=== PATIENT | female | born 1965 | race Caucasian/White ===

== ENCOUNTER → 2016-06-12 | Outpatient (CLI) | payer BC ==
[~2016-06-12] MED LIST: ALBU1AER9 INH; ASTIN/15 NAE; FLUO20CA35 PO; FLUT50SP22 NAE; LORA-741 PO; MONT1TAB3 PO; MULT-506 PO; NXM/40 PO; QVRINH80 NAE; VALA500T60 PO
--- NOTE | 2016-06-12 13:24 | MAMMOGRAPHY REPORT ---
BILATERAL DIGITAL SCREENING MAMMOGRAM TOMOSYNTHESIS WITH CAD: 06/12/2016 TECHNIQUE: Breast tomosynthesis in addition to standard 2D mammography was performed. Current study was also evaluated with a Computer Aided Detection (CAD) system. COMPARISON: Comparison is made to exams dated: 06/08/2015 mammogram, 06/07/2014 mammogram, 06/04/2013 ma mmogram, 05/23/2011 mammogram, 06/02/2012 mammogram, and 05/22/2010 mammogram - [facility] nt. BREAST COMPOSITION: There are scattered areas of fibroglandular density in both breasts. FINDINGS: No suspicious masses, calcifications, or areas of architectural distortion are noted in e ither breast. There has been no significant interval change compared to prior exams. IMPRESSION: ACR BI-RADS CATEGORY 1: NEGATIVE There is no mammographic evidence of malignancy. A 1 year screening mammogram is recommended. The p atient will receive written notification of the results. Approximately 10% of breast cancers are not detected with mammography. A negative mammographic repor t should not delay biopsy if a clinically suggestive mass is present. Silvia Lozano M.D. ah/:06/12/2016 09:55:09 [employer] Glazer: Selma MIXON)(Kylee), [facility] letter sent: Normal 1/2 BI-RADS Code: ACR BI-RADS Category 1: Negative
== END | disposition home or self-care (01) ==
LOC: C.MAMM 09:12
PROVIDERS: ATTEND Obstetrics & Gynecology
DX: Z12.31 Encounter for screening mammogram for malignant neoplasm of breast (principal)

== ENCOUNTER → 2016-06-15 | Outpatient (CLI) | payer BC | END | disposition home or self-care (01) | LOC: C.PAPS 16:36 | PROVIDERS: ATTEND Obstetrics & Gynecology | DX: Z01.411 Encounter for gynecological examination (general) (routine) with abnormal findings (principal); R87.619 Unspecified abnormal cytological findings in specimens from cervix uteri ==

== ENCOUNTER → 2017-03-26 | Outpatient (CLI) | payer BC ==
[2017-03-26 17:37] LABS: MEAN CELL VOLUME 84.1 fL (80-100); MEAN CORPUSCULAR HEMOGLOBIN 27.2 pg (25-34); MEAN CORPUSCULAR HGB CONC 32.4 g/dl (32-36); PLATELET COUNT 400 K/uL (130-400); RED BLOOD COUNT 4.52 M/uL (4.2-5.4); WHITE BLOOD COUNT 12.21 K/uL (4.8-10.8)
== END | disposition home or self-care (01) ==
LOC: C.LAB1850 16:38
PROVIDERS: ATTEND Obstetrics & Gynecology
DX: N93.9 Abnormal uterine and vaginal bleeding, unspecified (principal)

== ENCOUNTER → 2017-05-15 | Day surgery (SDC) | payer BC, OTHER ==
[2017-04-04 13:37] VITALS: Ht 152.4 cm; Wt 77.3 kg
[~2017-05-15] VITALS: Ht 152.4 cm; Wt 77.3 kg
[~2017-05-15] MED LIST changes: -ALBU1AER9 INH; +ATROPINE SULFATE 0.1 MG/ML 5ML SYR IV PRN; +DEXAMETHASONE SOD INJ 4 MG/ML VIAL ONE; +EpHEDrine SULFATE INJ 50 MG/ML AMP IV PRN; +FENTANYL CITRATE INJ 50 MCG/1 ML 2 ML VIAL IV PRN; +FENTANYL CITRATE INJ 50 MCG/1 ML 2 ML VIAL ONE; +HYDROmorphone INJ 1 MG/ML SYR IV PRN; +IBUPROFEN 600 MG TAB PO PRN; +KETOROLAC TROMETHAMINE 30 MG/ML VIAL IV. PRN; +KETOROLAC TROMETHAMINE 30 MG/ML VIAL ONE; +LACTATED RINGER'S 1000ML 1,000 ML IV SCH; +LIDOCAINE HCL 2% 2 ML VIAL (20MG/ML) ONE; +MIDAZOLAM HCL 1 MG/ML 2ML VIAL ONE; +ONDANSETRON INJ 2 MG/ML 2 ML VIAL IV PRN; +ONDANSETRON INJ 2 MG/ML 2 ML VIAL ONE; +OXYCODONE/ACETAMINOPHEN 5-325 TAB PO PRN; +PROPOFOL IV EMULSION 10 MG/ML 20 ML VIAL IV ONE; +SILVER NITR/POTASSIUM NITRATE APPLICATOR ONE; +SODIUM CHLORIDE 0.9% 1000ML 1,000 ML IV SCH; +VNTHFA/IN INH
--- NOTE | 2017-05-15 12:02 | History & Physical Bridge - SC ---
H&P Re-Evaluation Bridge Note: I have examined the patient, reviewed the History & Physical and in the interval since the performance of the History & Physical I have noted the following changes of clinical significance: No changes noted
--- NOTE | 2017-05-15 12:43 | [facility] Post Operative Brief Note ---
Immediate Operative Summary Operative Date May 15, 2017. Pre-Operative Diagnosis Abnormal Uterine Bleeding; Menorrhagia with Regular Cycle Post-Operative Diagnosis Same Procedure(s) Performed 1. D&C 2. Hysteroscopy 3. endometrial ablation with novasure. Surgeon Dr. Fifi Acevedo Cement Truck Loader Surgeon(s) None Estimated Blood Loss 0 Findings normal cavity with fluffy lining, consistent with current menses. right tubal ostia seen, left not well seen. uterus sounds to 8cm, cervix length is 3.5cm for cavity length of 4.5cm. Cavity width 3.5cm. Ablation in 1min 39 seconds. normal cavity consistent with ablation postprocedure with no evidence of perforation. Fluids (cc crystalloids) 750 Specimens A. Endometrial Curettings Drains none Anesthesia general Complication(s) None Disposition Recovery Room / PACU
--- NOTE | 2017-05-15 12:45 | Discharge Instructions ---
Discharge Instructions Date of Service May 15, 2017. Admission Reason for Admission: Excessive And Frequent Menstration With Irregular Discharge Discharge Diagnosis / Problem: after surgery Discharge Goals Goal(s): Routine recovery after surgery Activity Recommendations Activity Limitations: as noted below . Instructions / Follow-Up Instructions / Follow-Up ACTIVITY RECOMMENDATIONS: * Avoid tampons, douching, hot tubs, pools, and intercourse until bleeding has stopped. * May shower as usual. * No strenuous activity for 24-48 hours. After 24-48 hours, you may do anything you feel like doing (driving and sports are okay). SPECIAL CARE INSTRUCTIONS: Special Diet: * Mild nausea may occur in the immediate post-operative period. * Take clear liquids such as tea, cola or bouillon until all nausea has subsided; you may then resume your normal diet. Special Care: * Light bleeding and vaginal spotting can last from a few days to 3-4 weeks. Call your doctor if bleeding becomes heavier than the heaviest part of your period. * Check your temperature twice a day for one week. If it goes above 100.4 degrees Fahrenheit (38.0 Celsius), notify your doctor. * Call your doctor's office for an appointment for 2-4 weeks after your surgery. FOLLOW-UP VISIT: Call your doctor's office for an appointment for 2-4 weeks after your surgery. Current Hospital Diet Patient's current hospital diet: Discharge Diet Recommended Diet: Regular Diet Procedures Procedures Performed: 1. D&C 2. Hysteroscopy 3. endometrial ablation with novasure. Pending Studies Studies pending at discharge: yes List of pending studies: pathology Medical Emergencies . Who to Call and When: Medical Emergencies: If at any time you feel your situation is an emergency, please call 911 immediately. . Non-Emergent Contact Non-Emergency issues call your: Manager Data Warehousing . . "Provider Documentation" section prepared by Jasmyne Acevedo. . VTE Core Measure Inpt VTE Proph given/why not?: Treatment not indicated
--- NOTE | 2017-05-15 13:05 | [facility] Operative Report ---
Operative Report Operative Date May 15, 2017. Pre-Operative Diagnosis Abnormal Uterine Bleeding; Menorrhagia with Regular Cycle Post-Operative Diagnosis Same Procedure(s) Performed 1. D&C 2. Hysteroscopy 3. endometrial ablation with novasure. Surgeon Dr. Fifi Acevedo Battery Container Inspector Surgeon(s) None Estimated Blood Loss 0 Findings Hysteroscopic findings included normal uterine cavity with no evidence of lesions. Right tubal ostia seen, left tubal ostia obscured. Lining was fluffy in appearance consistent with her current menses. Moderate curettings. The patient took place in 1 minute 39 seconds. Saline hysteroscopic fluid deficit 0 cc. Post-procedure hysteroscopic findings included cavity consistent with ablation with no evidence of perforation. Fluids (cc crystalloids) 750 Specimens A. Endometrial Curettings Drains none Anesthesia Gen. Complication(s) None Disposition Recovery Room / PACU Indications 52-year-old with a history of heavy periods and desires surgical management with endometrial ablation. She is aware of all of her other options and desires to proceed. She has had a tubal ligation for control. Description of Procedure The patient was taken to the operating room and identified. After adequate general anesthesia was obtained she was placed in the dorsolithotomy position and prepped and draped in usual sterile fashion. The bladder was drained for clear yellow urine. A weighted speculum and anterior retractor were placed to visualize the cervix which was grasped on its anterior lip with an Allis clamp. The cervix was sequentially dilated using Hegar dilators to 19. The diagnostic hysteroscope primed with saline media was gently placed through the cervical os into the uterine cavity with the findings as noted above. Hysteroscope was removed. The uterus was curettaged to a gritty consistency and the specimen was sent to pathology. The uterus had already been sounded to 8 cm. The cavity length was determined. The NovaSure endometrial ablation device was readied. It was placed gently into the uterine cavity after further dilation of the cervix to 23. The device was opened and the cavity width was determined. Initially the device did not pass its cavity assessment. This was thought to be due to leakage at the cervix as it was quite parous and air bubbles could be heard and seen. Using a tenaculum to narrow the external os as well as Vaseline gauze the device did pass its cavity assessment and an endometrial ablation took place in the usual fashion. The device was allowed to cool and then was removed. The hysteroscope was reintroduced to visualize the cavity which was consistent with ablation and no evidence of perforation. At this point the procedure was terminated. The patient was returned to the supine position and awoken from her anesthesia. She was transported to recovery room in stable condition. All sponge lap and needle counts were correct 2. I attest to the content of the Intraoperative Record and any orders documented therein. Any exceptions are noted below.
--- NOTE | 2017-05-15 13:57 | Anesthesia Progress Nt - [facility] ---
Anesthesia Post Op Note Date & Time May 15, 2017 at 13:57 Vital Signs Pain Intensity: 1 Vital Signs Past 12 Hours Date Time Temp Pulse Resp B/P (MAP) Pulse Ox O2 Delivery O2 Flow Rate FiO2 05/15/17 13:51 36.7 73 20 117/72 (87) 98 Room Air 05/15/17 13:42 74 17 95 05/15/17 13:42 75 17 05/15/17 13:42 36.6 69 16 124/74 96 Room Air 05/15/17 13:40 124/74 05/15/17 13:37 66 11 05/15/17 13:37 66 11 98 05/15/17 13:35 126/70 05/15/17 13:32 65 10 05/15/17 13:32 65 10 99 05/15/17 13:30 127/74 05/15/17 13:27 66 12 100 05/15/17 13:27 64 12 05/15/17 13:26 131/68 05/15/17 13:22 66 16 98 05/15/17 13:22 65 16 05/15/17 13:20 150/73 05/15/17 13:17 64 10 05/15/17 13:17 63 10 100 05/15/17 13:15 137/75 05/15/17 13:12 67 18 05/15/17 13:12 68 18 93 05/15/17 13:10 142/75 05/15/17 13:07 68 16 97 05/15/17 13:07 66 16 05/15/17 13:05 125/73 05/15/17 13:02 64 20 05/15/17 13:02 65 20 100 05/15/17 13:00 142/58 05/15/17 12:57 64 14 05/15/17 12:57 63 14 100 05/15/17 12:55 127/68 05/15/17 12:52 67 13 100 05/15/17 12:52 68 13 05/15/17 12:50 134/82 05/15/17 12:48 36.7 86 12 130/79 100 Mask 6 05/15/17 12:48 130/79 05/15/17 12:47 85 100 05/15/17 12:47 85 05/15/17 11:12 36.7 72 20 121/63 (82) 96 Room Air Notes Mental Status: alert / awake / arousable, participated in evaluation Pt Amnestic to Procedure: Yes Nausea / Vomiting: adequately controlled Pain: adequately controlled Airway Patency, RR, SpO2: stable & adequate BP & HR: stable & adequate Hydration State: stable & adequate Anesthetic Complications: no major complications apparent
[2017-05-15 14:20] VITALS: BP 145/85; PULSE 77; TEMP 36.6; O2SAT 96
== END | disposition home or self-care (01) ==
LOC: X.SURG 10:56
PROVIDERS: ATTEND Obstetrics & Gynecology
DX: N92.0 Excessive and frequent menstruation with regular cycle (principal); K21.0 Gastro-esophageal reflux disease with esophagitis; J45.909 Unspecified asthma, uncomplicated; F41.9 Anxiety disorder, unspecified; E66.9 Obesity, unspecified; Z68.32 Body mass index [BMI] 32.0-32.9, adult; Z79.899 Other long term (current) drug therapy

== ENCOUNTER → 2017-06-13 | Outpatient (CLI) | payer OTHER ==
[~2017-06-13] MED LIST changes: -ATROPINE SULFATE 0.1 MG/ML 5ML SYR IV PRN; -DEXAMETHASONE SOD INJ 4 MG/ML VIAL ONE; -EpHEDrine SULFATE INJ 50 MG/ML AMP IV PRN; -FENTANYL CITRATE INJ 50 MCG/1 ML 2 ML VIAL IV PRN; -FENTANYL CITRATE INJ 50 MCG/1 ML 2 ML VIAL ONE; -HYDROmorphone INJ 1 MG/ML SYR IV PRN; -IBUPROFEN 600 MG TAB PO PRN; -KETOROLAC TROMETHAMINE 30 MG/ML VIAL IV. PRN; -KETOROLAC TROMETHAMINE 30 MG/ML VIAL ONE; -LACTATED RINGER'S 1000ML 1,000 ML IV SCH; -LIDOCAINE HCL 2% 2 ML VIAL (20MG/ML) ONE; -MIDAZOLAM HCL 1 MG/ML 2ML VIAL ONE; -ONDANSETRON INJ 2 MG/ML 2 ML VIAL IV PRN; -ONDANSETRON INJ 2 MG/ML 2 ML VIAL ONE; -OXYCODONE/ACETAMINOPHEN 5-325 TAB PO PRN; -PROPOFOL IV EMULSION 10 MG/ML 20 ML VIAL IV ONE; -SILVER NITR/POTASSIUM NITRATE APPLICATOR ONE; -SODIUM CHLORIDE 0.9% 1000ML 1,000 ML IV SCH
--- NOTE | 2017-06-13 15:10 | MAMMOGRAPHY REPORT ---
BILATERAL DIGITAL SCREENING MAMMOGRAM TOMOSYNTHESIS WITH CAD: 06/13/2017 CLINICAL HISTORY: Routine screening. Patient has no complaints. TECHNIQUE: Breast tomosynthesis in addition to standard 2D mammography was performed. Current study was also evaluated with a Computer Aided Detection (CAD) system. COMPARISON: Comparison is made to exams dated: 06/12/2016 mammogram, 06/08/2015 mammogram, 06/07/2014 ma mmogram, 06/04/2013 mammogram, 06/02/2012 mammogram, and 05/23/2011 mammogram - [facility] er. BREAST COMPOSITION: There are scattered areas of fibroglandular density in both breasts. FINDINGS: No suspicious masses, calcifications, or areas of architectural distortion are noted in ei ther breast. There has been no significant interval change compared to prior exams. IMPRESSION: ACR BI-RADS CATEGORY 1: NEGATIVE There is no mammographic evidence of malignancy. A 1 year screening mammogram is recommended. The pa tient will receive written notification of the results. Approximately 10% of breast cancers are not detected with mammography. A negative mammographic report should not delay biopsy if a clinically suggestive mass is present. Silvia Lozano M.D. /:06/13/2017 09:22:29 Head Still Operator: Treasure SAENZ(Pooja)(Kylee), [facility] letter sent: Normal 1/2 BI-RADS Code: ACR BI-RADS Category 1: Negative
== END | disposition home or self-care (01) ==
LOC: C.MAMM 08:23
PROVIDERS: ATTEND Obstetrics & Gynecology
DX: Z12.31 Encounter for screening mammogram for malignant neoplasm of breast (principal)